=== PATIENT | female | born 1950 | race Caucasian/White ===

== ENCOUNTER → 2022-02-19 | Outpatient (CLI) | payer MEDICARE ==
[2022-02-19 10:06] LABS: African American GFR (CKD) >90 (>60 ml/min/1.73 sqM); Blood Urea Nitrogen 21 mg/dL (7-17); Non-African American GFR(CKD) 90 (>60 ml/min/1.73 sqM)
--- NOTE | 2022-02-19 14:58 | CT ---
EXAMINATION TYPE: CT urogram wo/w con DATE OF EXAM: 02/19/2022 COMPARISON: None INDICATION: Gross hematuria, recurrent UTI's DLP: 2245 mGycm, Automated exposure control for dose reduction was used. CONTRAST: 100 mL of Isovue 370. Study performed without Oral Contrast TECHNIQUE: Axial images were obtained from above the diaphragm to the pubic rami in the axial plane a t 5 mm thick sections. Reconstructed images are reviewed on the computer in the coronal plane. FINDINGS: Limited CT sections are obtained the lung bases. The lung bases are clear. CT ABDOMEN: Liver: There is a hypodensity within the inferior right lobe liver may be a small cyst measuring 1.8 cm in craniocaudal dimension. Spleen: Scattered calcified granulomata within the spleen. Pancreas: Normal Adrenal glands: The adrenal glands are normal. Gallbladder: Cholelithiasis. Kidneys: No masses are evident. No hydronephrosis is present. No cysts are present. Ureters follow a normal caliber course and contour to the urinary bladder. Postcontrast and delayed images were obt ained. 3-D reconstructed images performed on a separate computer by the technologist are reviewed. Aorta: Vascular calcification is within the aorta. Inferior vena cava: Normal. CT PELVIS: Loops of bowel within the abdomen and pelvis are normal. This study is performed without oral con trast in bowel evaluation. Appendix: Not identified. No dilated tubular structure or suspicious inflammatory change evident. Urinary bladder: Normal. Genitourinary structures: Uterus is visualized normal. Adnexa are normal. Osseous structures: No suspicious lytic or sclerotic lesions. IMPRESSIONS: 1. No suspicious urogram abnormalities to account for hematuria. 2. Cholelithiasis. 3. Hepatic cyst
== END | disposition home or self-care (01) ==
LOC: RADCTMAIN 09:30
PROVIDERS: ATTEND Urology
DX: K80.20 Calculus of gallbladder without cholecystitis without obstruction (principal); K76.89 Other specified diseases of liver
CPT/HCPCS: 82565; 84520; 74178; 36415; 74400; Q9967

== ENCOUNTER 2022-12-13 05:08 | Observation (INO) | payer MEDICARE ==
[2022-12-13 05:23] VITALS: TEMP 97.1
[2022-12-13 05:33] LABS: Basophils % (A) 0 %; Eosinophils # (A) 0.1 k/uL (0-0.7); Eosinophils % (A) 1 %; HCT 42.1 % (34.0-46.0); Lymphocytes # (A) 2.9 k/uL (1.0-4.8); Lymphocytes % (A) 45 %; MCH 31.3 pg (25.0-35.0); MCHC 33.2 g/dL (31.0-37.0); MCV 94.1 fL (80.0-100.0); Monocytes # (A) 0.3 k/uL (0-1.0); Monocytes % (A) 5 %; Neutrophils % (A) 47 %; Platelet Count 148 k/uL (150-450); RBC 4.47 m/uL (3.80-5.40); RDW 13.1 % (11.5-15.5); WBC 6.4 k/uL (3.8-10.6)
[2022-12-13 05:51] LABS: ALT 14 U/L (4-34); AST 17 U/L (14-36); African American GFR (CKD) >90 (>60 ml/min/1.73 sqM); Albumin 3.6 g/dL (3.5-5.0); Alkaline Phosphatase 61 U/L (38-126); Anion Gap 8 mmol/L; Blood Urea Nitrogen 17 mg/dL (7-17); Calcium 8.9 mg/dL (8.4-10.2); Carbon Dioxide 24 mmol/L (22-30); Chloride 106 mmol/L (98-107); Glucose 138 mg/dL (74-99); Lipase 44 U/L (23-300); Magnesium 1.8 mg/dL (1.6-2.3); Non-African American GFR(CKD) 88 (>60 ml/min/1.73 sqM); Potassium 3.5 mmol/L (3.5-5.1); Sodium 138 mmol/L (137-145); Total Bilirubin 1.2 mg/dL (0.2-1.3); Total Protein 6.7 g/dL (6.3-8.2)
[2022-12-13 06:00] LABS: INR 0.9 (<1.2); Partial Thromboplastin Time 22.4 sec (22.0-30.0); Prothrombin Time 9.8 sec (9.0-12.0)
--- NOTE | 2022-12-13 06:04 | XR ---
EXAMINATION TYPE: XR chest 2V DATE OF EXAM: 12/13/2022 COMPARISON: None HISTORY: 72-year-old female with chest pain TECHNIQUE: PA and lateral views FINDINGS: Heart upper limits of normal in size. Mild strandy atelectasis in the mid and lower lungs without fra nk consolidation or pleural effusion. Mild central peribronchial cuffing. IMPRESSION: Mild central peribronchial cuffing could reflect bronchitis or asthma. Otherwise, there is some stran dy atelectasis in the lower lungs. No herman infiltrate seen.
--- NOTE | 2022-12-13 06:36 | ED ---
Chest Pain HPI - General Chief Complaint: Chest Pain Stated Complaint: Chest pain Time Seen by Provider: 12/13/22 05:20 Source: patient, EMS Mode of arrival: EMS Limitations: no limitations - History of Present Illness Initial Comments: 72-year-old female with past medical history of "blood cancer" who presents to the emergency department with reported chest pain. States that she awoke to go to the bathroom around 4 PM and had intense onset of chest pressure. Had mild shortness of breath. There was no radiation of the pain. Denies recent fevers, chills or cough.. Patient states that the pain lasted for approximately 30 minutes and she can no longer take and therefore she called EMS. EMS provided her with 2 sublingual nitros for which she states did alleviate her pain completely. She was also given aspirin. Patient arrives and is pain-free. States that she follows with Dr. Jasso. No previous history of cardiac disease. No history of DVT or PE. No other alleviating, precipitating or modifying factors - Related Data Allergies Allergy/AdvReac Type Severity Reaction Status Date / Time No Known Allergies Allergy Verified 12/13/22 05:30 Review of Systems ROS Statement: Those systems with pertinent positive or pertinent negative responses have been documented in the HPI. ROS Other: All systems not noted in ROS Statement are negative. General Exam Limitations: no limitations General appearance: alert, in no apparent distress Head exam: Present: atraumatic, normocephalic, normal inspection Eye exam: Present: normal appearance, PERRL, EOMI. Absent: scleral icterus, conjunctival injection, periorbital swelling ENT exam: Present: normal exam, mucous membranes moist Neck exam: Present: normal inspection. Absent: tenderness, meningismus, lymphadenopathy Respiratory exam: Present: normal lung sounds bilaterally. Absent: respiratory distress, wheezes, rales, rhonchi, stridor Cardiovascular Exam: Present: regular rate, normal rhythm, normal heart sounds. Absent: systolic murmur, diastolic murmur, rubs, gallop, clicks GI/Abdominal exam: Present: soft, normal bowel sounds. Absent: distended, tenderness, guarding, rebound, rigid Extremities exam: Present: normal inspection, full ROM, normal capillary refill. Absent: tenderness, pedal edema, joint swelling, calf tenderness Back exam: Present: normal inspection Neurological exam: Present: alert, oriented X3, CN II-XII intact Psychiatric exam: Present: normal affect, normal mood Skin exam: Present: warm, dry, intact, normal color. Absent: rash Course Vital Signs 12/13/22 12/13/22 12/13/22 05:18 06:23 08:00 Temperature 97.1 F L Pulse Rate 65 58 L 78 Respiratory 16 16 18 Rate Blood Pressure 124/64 128/74 O2 Sat by Pulse 94 L 94 L 98 Oximetry Chest Pain MDM - MDM Was pt. sent in by a medical professional or institution (, PA, PEDIATRIC CRITICAL CARE NURSE, urgent care, hospital, or long term...) When possible be specific @ -No Did you speak to anyone other than the patient for history (EMS, parent, family, police, friend...)? What history was obtained from this source @ -No Did you review nursing and triage notes (agree or disagree)? Why? @ -I reviewed and agree with nursing and triage notes Were old charts reviewed (outside hosp., previous admission, EMS record, old EKG, old radiological studies, urgent care reports/EKG's, long term records)? Report findings @ -No old charts were reviewed Differential Diagnosis (chest pain, altered mental status, abdominal pain women, abdominal pain men, vaginal bleeding, weakness, fever, dyspnea, syncope, headache, dizziness, GI bleed, back pain, seizure, CVA, palpatations, mental health, musculoskeletal)? @ -Differential Chest Pain: Stable Angina, Unstable Angina, STEMI, NSTEMI Aortic Dissection, Pneumothorax, Musculoskeletal, Esophageal Spasm GERD, Cholecystitis, Pancreatitis, Zoster, this is not meant to be an all-inclusive list. EKG interpreted by me (3pts min.). @ -Yes and demonstrates sinus rhythm with a rate of 62. WI 149. QRS 104. QTC of 422. No acute ST segment elevations or depressions X-rays interpreted by me (1pt min.). @ -Yes and demonstrates reactive airway disease CT interpreted by me (1pt min.). @ -None done U/S interpreted by me (1pt. min.). @ -None done What testing was considered but not performed or refused? (CT, X-rays, U/S, labs)? Why? @ -None What meds were considered but not given or refused? Why? @ -None Did you discuss the management of the patient with other professionals (professionals i.e. , PA, PEDIATRIC CRITICAL CARE NURSE, lab, RT, psych nurse, social service assistant, rocket engine component mechanic, teacher, compliance officer, pillowcase cutter)? Give summary @ -Yes, spoke with Beckie from [facility] who agreed to admit the patient. Was smoking cessation discussed for >3mins.? @ -No Was critical care preformed (if so, how long)? @ -No Were there social determinants of health that impacted care today? How? (Homelessness, low income, unemployed, alcoholism, drug addiction, transportation, low edu. Level, literacy, decrease access to med. care, senior living, rehab)? @ -No Was there de-escalation of care discussed even if they declined (Discuss DNR or withdrawal of care, Hospice)? DNR status @ -No What co-morbidities impacted this encounter? (DM, HTN, Smoking, COPD, CAD, Cancer, CVA, ARF, Chemo, Hep., AIDS, mental health diagnosis, sleep apnea, morbid obesity)? @ -None Was patient admitted / discharged? Hospital course, mention meds given and route, prescriptions, significant lab abnormalities, going to OR and other pertinent info. @ -Upon arrival patient was placed into room 4. History and physical exam was performed. Patient placed on continuous pulse ox and cardiac monitoring. 12- lead EKG was obtained patient remained pain-free while within the emergency department. Laboratory studies are conducted and reviewed. Chest x-ray demonstrates reactive process. Results are discussed with the patient. Did recommend admission in order to trend her troponins and had a cardiac evaluation. Patient was agreeable to this. Patient transported to the floor in stable condition Undiagnosed new problem with uncertain prognosis? @ -Yes Drug Therapy requiring intensive monitoring for toxicity (Heparin, Nitro, Insulin, Cardizem)? @ -No Were any procedures done? @ -No Diagnosis/symptom? @ -Acute chest pain Acute, or Chronic, or Acute on Chronic? @ -Acute Uncomplicated (without systemic symptoms) or Complicated (systemic symptoms)? @ -complicated Side effects of treatment? @ -No Exacerbation, Progression, or Severe Exacerbation? @ -No Poses a threat to life or bodily function? How? (Chest pain, [place], [place], pneumonia, PE, COPD, DKA, ARF, appy, cholecystitis, CVA, Diverticulitis, Homicidal, Suicidal, threat to staff... and all critical care pts) @ -No Disposition Clinical Impression: Chest pain Disposition: ADMITTED IP TO THIS HOSP Condition: Stable Is patient prescribed a controlled substance at d/c from ED?: No Time of Disposition: 06:36 Decision to Admit Reason: Admit from EC Decision Date: 12/13/22 Decision Time: 06:36
[2022-12-13] MEDS ORDERED: NALOXONE 0.4 MG/ML 1 ML VIAL IV PRN (06:49)
[2022-12-13] MEDS ORDERED: ONDANSETRON 4 MG/2 ML VIAL IVP PRN (07:47)
[2022-12-13] MEDS ORDERED: ACETAMINOPHEN TAB 325 MG TAB PO PRN (07:47)
[2022-12-13] MEDS ORDERED: PANTOPRAZOLE 40 MG TABLET PO SCH (08:00)
[2022-12-13 08:01] VITALS: BP 128/74; PULSE 78; RESP 18
[2022-12-13] MEDS ORDERED: HEPARIN SODIUM,PORCINE/PF 5,000 UNIT/0.5 ML SYRINGE SQ SCH (09:00)
--- NOTE | 2022-12-13 13:14 | P.CRDCN ---
History of Present Illness Consult date: 12/13/22 Requesting physician: Roderick Will Reason for Consult (text): chest pain History of present illness: This is a pleasant but confused 72-year-old patient who follows with Dr. Haq in the office. She admits to having history of memory issues but denies dementia. She has a poor historian. Most the HPI was obtained from the chart. She admits to remembering having a different sensation in her chest but cannot clearly remember whether she was having pain. Urine no does mention patient had chest pain and was given sublingual nitro by EMS with relief. She does not recall getting sublingual nitro and feels that she got an injection in her arm that apparently relieved the sensation in her chest. She has a history of "rare blood cancer", hypertension, and mild to moderate aortic stenosis by echo in May. She does not recall having previous episodes of chest discomfort. She does not recall whether she's had a stress test in the past. She does not clearly remember having an echocardiogram. She does say she has an upcoming appointment in the office with Dr. Haq. She does not recall having any issues with breathing, dizziness or lightheadedness. She denies any edema, orthopnea or PND. She walks with a walker and lives in an assisted living community. Past Medical History Past Medical History: Cancer, Memory Impairment History of Any Multi-Drug Resistant Organisms: None Reported Past Surgical History: Bladder Surgery Additional Past Surgical History / Comment(s): PT REPORT HAVING COUGH RECENTLY THAT WAS PRODUCTIVE WHITE AND IS NOW BETTER. PT ATTRIBUTES TO SHREDDING PAPERS AND SMOKE OUTSIDE. Past Anesthesia/Blood Transfusion Reactions: No Reported Reaction Additional Past Anesthesia/Blood Transfusion Reaction / Comment(s): NEVER HAD Past Psychological History: Anxiety Smoking Status: Never smoker Medications and Allergies Home Medications Medication Instructions Recorded Confirmed Type Cholecalciferol [Vitamin D3 (25 25 mcg PO DAILY 12/13/22 12/13/22 History Mcg = 1000 Iu)] Cyanocobalamin (Vitamin B-12) 1,000 mcg PO Q48H 12/13/22 12/13/22 History [Vitamin B-12] Folic Acid 1 mg PO DAILY 12/13/22 12/13/22 History Ibrutinib [Imbruvica] 140 mg PO Q48H 12/13/22 12/13/22 History Ibrutinib [Imbruvica] 280 mg PO Q48H 12/13/22 12/13/22 History Metoprolol Tartrate [Lopressor] 12.5 mg PO BID 12/13/22 12/13/22 History Potassium Chloride ER [K-Dur 20] 20 meq PO BID 12/13/22 12/13/22 History hydroCHLOROthiazide [Hydrodiuril] 25 mg PO DAILY 12/13/22 12/13/22 History Allergies Allergy/AdvReac Type Severity Reaction Status Date / Time No Known Allergies Allergy Verified 12/13/22 11:23 Physical Exam Vitals: Vital Signs Temp Pulse Resp BP Pulse Ox 12/13/22 10:08 18 12/13/22 08:00 78 18 128/74 98 12/13/22 06:23 58 L 16 94 L 12/13/22 05:18 97.1 F L 65 16 124/64 94 L Intake and Output 12/12/22 12/13/22 12/13/22 22:59 06:59 14:59 Intake Total 296 Balance 296 Intake: Oral 296 Other: Voiding Method Toilet Weight 72.575 kg 72.575 kg PHYSICAL EXAMINATION: This is a 72-year-old female in no apparent distress at the time of my examination. HEENT: Head is atraumatic, normocephalic. Pupils are equal, round. Sclerae anicteric. Conjunctivae are clear. Mucous membranes of the mouth are moist. Neck is supple. There is no elevated jugular venous pressure. No carotid bruit is heard. CHEST EXAMINATION: Clear to auscultation bilaterally. No wheezes rales or rhonchi. Respirations even and nonlabored. HEART EXAMINATION: Heart regular, positive S1 and S2. No S3. No S4. Systolic ejection murmur. ABDOMEN: Soft, nontender. Bowel sounds are heard. No organomegaly noted. EXTREMITIES: 2+ peripheral pulses with no evidence of peripheral edema and no calf tenderness noted. NEUROLOGIC EXAMINATION: Patient is awake, alert and oriented x3. Short-term memory loss noted Results 12/13/22 05:23 12/13/22 05:23 Cardiac Enzymes 12/13/22 12/13/22 12/13/22 Range/Units 05: 05: 08:33 AST 17 (14-36) U/L Troponin I <0.012 <0.012 (0.000-0.034) ng/mL 12/13/22 Range/Units 11:48 AST (14-36) U/L Troponin I <0.012 (0.000-0.034) ng/mL Coagulation 12/13/22 Range/Units 05:23 PT 9.8 (9.0-12.0) sec APTT 22.4 (22.0-30.0) sec CBC 12/13/22 Range/Units 05:23 WBC 6.4 (3.8-10.6) k/uL RBC 4.47 (3.80-5.40) m/uL Hgb 14.0 (11.4-16.0) gm/dL Hct 42.1 (34.0-46.0) % Plt Count 148 L (150-450) k/uL Comprehensive Metabolic Panel 12/13/22 Range/Units 05:23 Sodium 138 (137-145) mmol/L Potassium 3.5 (3.5-5.1) mmol/L Chloride 106 (98-107) mmol/L Carbon Dioxide 24 (22-30) mmol/L BUN 17 (7-17) mg/dL Creatinine 0.64 (0.52-1.04) mg/dL Glucose 138 H (74-99) mg/dL Calcium 8.9 (8.4-10.2) mg/dL AST 17 (14-36) U/L ALT 14 (4-34) U/L Alkaline Phosphatase 61 (38-126) U/L Total Protein 6.7 (6.3-8.2) g/dL Albumin 3.6 (3.5-5.0) g/dL Current Medications Generic Name Dose Route Start Last Admin Trade Name Freq PRN Reason Stop Dose Admin Acetaminophen 650 mg 12/13/22 07:47 Acetaminophen Tab 325 Mg Tab PO Q6HR PRN Fever and/ or Pain Heparin Sodium (Porcine) 5,000 unit 12/13/22 09:00 12/13/22 10:22 Heparin Sodium,Porcine/Pf 5,000 Unit/0.5 Ml Syringe SQ Not Given Q12HR MARQUITA Naloxone HCl 0.2 mg 12/13/22 06:49 Naloxone 0.4 Mg/Ml 1 Ml Vial IV Q2M PRN Opioid Reversal Ondansetron HCl 4 mg 12/13/22 07:47 Ondansetron 4 Mg/2 Ml Vial IVP Q6HR PRN Nausea And Vomiting Pantoprazole Sodium 40 mg 12/13/22 08:00 12/13/22 08:00 Pantoprazole 40 Mg Tablet PO Not Given AC-BRKFST MARQUITA Intake and Output 12/12/22 12/13/22 12/13/22 22:59 06:59 14:59 Intake Total 296 Balance 296 Intake: Oral 296 Other: Voiding Method Toilet Weight 72.575 kg 72.575 kg Patient Weight 12/14/22 06:59 Weight 72.575 kg 12/13/22 05:23 12/13/22 05:23 EKG Interpretations (text) Sinus rhythm Assessment and Plan Assessment: #1 chest pain, troponins negative 2 and EKG shows no evidence of ischemia, no prior documented history of CAD #2 aortic stenosis, mild to moderate most recent echocardiogram #3 hypertension #4 cognitive impairment Plan: From ground control approach technician perspective R assume home dose of hydrochlorothiazide and metoprolol. Will obtain a 2-D echo with Doppler study to assess cardiac structure and function. Continue to monitor the patient. Depending on her symptoms further recommendations will be made. AUTOMOTIVE PARTS SALESPERSON note has been reviewed, I agree with a documented findings and plan of care. Patient was seen and examined.
[2022-12-13] MEDS ORDERED: POTASSIUM CHLORIDE ER 20 MEQ TAB.ER PO SCH (13:30)
[2022-12-13 14:14] LABS: Iron 41 UG/DL (50-170); Total Iron Binding Capacity 203 UG/DL (228-460)
--- NOTE | 2022-12-13 14:46 | P.HPIM ---
History of Present Illness H&P Date: 12/13/22 History of present illness; patient is 72-year-old lady with past medical signif icant for bone cancer presented to ER because of chest pain. Patient stated that she woke up to go to bathroom when she started experiencing chest pressure. Chest pressure was central in location, nonradiating, associated with shortness of breath. There was no aggravating or relieving factors associated with this chest pressure. Denied any fever or chills. Denied any c/o of palpitations. Denies any complaint of sweating. Denies any orthopnea or PND. EMS was called and patient was given nitro on way to the ER which relieved her chest pain. Initial lab work done in the ER showed W6.4, hemoglobin 14, platelet count 148, sodium 1:30, potassium 3.5, BUN 17, creatinine 0.64, proBNP 22, troponin less than 0.012 EKG done showed regular rate of 62 bpm, QRS 104, no ST segment depression or e levation seen, no T-wave inversion Chest x-ray done showed mild central peribronchial cuffing could reflect bronchitis versus asthma Patient admitted to medicine service REVIEW OF SYSTEMS: CONSTITUTIONAL: No fever, no malaise, no fatigue. HEENT: No recent visual problems or hearing problems. Denied any sore throat. CARDIOVASCULAR: As mentioned in HPI PULMONARY: No shortness of breath, no cough, no hemoptysis. GASTROINTESTINAL: No diarrhea, no nausea, no vomiting, no abdominal pain. NEUROLOGICAL: No headaches, no weakness, no numbness. HEMATOLOGICAL: Denies any bleeding or petechiae. GENITOURINARY: Denies any burning micturition, frequency, or urgency. MUSCULOSKELETAL/RHEUMATOLOGICAL: Denies any joint pain, swelling, or any muscle pain. ENDOCRINE: Denies any polyuria or polydipsia. The rest of the 14-point review of systems is negative. PHYSICAL EXAMINATION: GENERAL: The patient is alert and oriented x3, not in any acute distress. Well developed, well nourished. HEENT: Pupils are round and equally reacting to light. EOMI. No scleral icterus. No conjunctival pallor. Normocephalic, atraumatic. No pharyngeal erythema. No thyromegaly. CARDIOVASCULAR: S1 and S2 present. No murmurs, rubs, or gallops. PULMONARY: Chest is clear to auscultation, no wheezing or crackles. ABDOMEN: Soft, nontender, nondistended, normoactive bowel sounds. No palpable organomegaly. MUSCULOSKELETAL: No joint swelling or deformity. EXTREMITIES: No cyanosis, clubbing, or pedal edema. NEUROLOGICAL: Gross neurological examination did not reveal any focal deficits. SKIN: No rashes. Assessment and plan Chest pain History of bone cancer Monitor vital signs Monitor CBC Monitor CMP Continue telemetry monitoring Trend troponins. Serial EKGs Consult cardiology Ordered lipid panel Ordered HbA1c level ordered TSH Labs and medication were reviewed.. Continue same treatment. Continue with symptomatic treatment. Resume home medication. Monitor labs and vitals. DVT and GI prophylaxis. Further recommendations as per clinical course of the patient Medications and Allergies Allergies Allergy/AdvReac Type Severity Reaction Status Date / Time No Known Allergies Allergy Verified 12/13/22 05:30 Physical Exam Vitals: Vital Signs Temp Pulse Resp BP Pulse Ox 12/13/22 08:00 78 18 128/74 98 12/13/22 06:23 58 L 16 94 L 12/13/22 05:18 97.1 F L 65 16 124/64 94 L Intake and Output 12/12/22 12/13/22 12/13/22 22:59 06:59 14:59 Intake Total 296 Balance 296 Intake: Oral 296 Other: Weight 72.575 kg Results CBC & Chem 7: 12/13/22 05:23 12/13/22 05:23 Labs: Abnormal Lab Results - Last 24 Hours (Table) 12/13/22 12/13/22 Range/Units 05:23 05:23 Plt Count 148 L (150-450) k/uL Glucose 138 H (74-99) mg/dL
--- NOTE | 2022-12-13 14:47 | P.DS ---
Providers Date of admission: 12/13/22 06:49 Expected date of discharge: 12/13/22 Attending physician: Roderick Will Consults: 12/13/22 06:49 Consult Physician Urgent Consulting Provider: [facility] Consult Reason/Comments: acute chest pain, possible acs Do you want consulting provider notified?: Yes Primary care physician: Subhash Strong Hospital Course: Discharge diagnoses; chest pain aortic stenosis hypertension Hospital course; patient is 72-year-old lady with past medical significant for bone cancer presented to ER because of chest pain. Patient stated that she woke up to go to bathroom when she started experiencing chest pressure. Chest pressure was central in location, nonradiating, associated with shortness of breath. There was no aggravating or relieving factors associated with this chest pressure. Denied any fever or chills. Denied any c/o of palpitations. Denies any complaint of sweating. Denies any orthopnea or PND. EMS was called and patient was given nitro on way to the ER which relieved her chest pain. Initial lab work done in the ER showed W6.4, hemoglobin 14, platelet count 148, sodium 1:30, potassium 3.5, BUN 17, creatinine 0.64, proBNP 22, troponin less than 0.012 EKG done showed regular rate of 62 bpm, QRS 104, no ST segment depression or elevation seen, no T-wave inversion Chest x-ray done showed mild central peribronchial cuffing could reflect bronchitis versus asthma Patient admitted to medicine service 12/13. Patient was seen and examined. Patient troponin continue to be flat. Cardiology evaluated the patient recommended resuming patient back on her cardiac medications and outpatient follow-up. Cardiology cleared the patient for discharge PHYSICAL EXAMINATION: GENERAL: The patient is alert and oriented x3, not in any acute distress. Well developed, well nourished. HEENT: Pupils are round and equally reacting to light. EOMI. No scleral icterus. No conjunctival pallor. Normocephalic, atraumatic. No pharyngeal erythema. No thyromegaly. CARDIOVASCULAR: S1 and S2 present. No murmurs, rubs, or gallops. PULMONARY: Chest is clear to auscultation, no wheezing or crackles. ABDOMEN: Soft, nontender, nondistended, normoactive bowel sounds. No palpable organomegaly. MUSCULOSKELETAL: No joint swelling or deformity. EXTREMITIES: No cyanosis, clubbing, or pedal edema. NEUROLOGICAL: Gross neurological examination did not reveal any focal deficits. SKIN: No rashes. Patient Condition at Discharge: Stable Plan - Discharge Summary New Discharge Prescriptions: Continue Folic Acid 1 mg PO DAILY hydroCHLOROthiazide [Hydrodiuril] 25 mg PO DAILY Potassium Chloride ER [K-Dur 20] 20 meq PO BID Ibrutinib [Imbruvica] 140 mg PO Q48H Cyanocobalamin (Vitamin B-12) [Vitamin B-12] 1,000 mcg PO Q48H Cholecalciferol [Vitamin D3 (25 Mcg = 1000 Iu)] 25 mcg PO DAILY Metoprolol Tartrate [Lopressor] 12.5 mg PO BID Discontinued Ibrutinib [Imbruvica] 280 mg PO Q48H Discharge Medication List Cholecalciferol [Vitamin D3 (25 Mcg = 1000 Iu)] 25 mcg PO DAILY 12/13/22 [Hist ory] Cyanocobalamin (Vitamin B-12) [Vitamin B-12] 1,000 mcg PO Q48H 12/13/22 [History] Folic Acid 1 mg PO DAILY 12/13/22 [History] Ibrutinib [Imbruvica] 140 mg PO Q48H 12/13/22 [History] Metoprolol Tartrate [Lopressor] 12.5 mg PO BID 12/13/22 [History] Potassium Chloride ER [K-Dur 20] 20 meq PO BID 12/13/22 [History] hydroCHLOROthiazide [Hydrodiuril] 25 mg PO DAILY 12/13/22 [History] Follow up Appointment(s)/Referral(s): Subhash Strong MD [Primary Care Provider] - 1-2 days Bhupinder Garcia MD [STAFF PHYSICIAN] - 1 Week Discharge Disposition: HOME SELF-CARE
--- NOTE | 2022-12-13 15:23 | CA ---
Transthoracic Echo Report Name: Elizabeth Smith Age: 72 Gender: F : 1950 Exam Date: 12/13/2022 11:31 Exam Location: [facility] Ht (in): 66 Wt (lb): 160 Ordering Physician: Kristie Jenkins Attending/Referring Phys: [id number], Alice Clinical Resource Coordinator Winifred Mccarty [facility] Procedure CPT: Indications: Chest Pain Cardiac Hx: Technical Quality: Fair Contrast 1: Total Dose (mL): Contrast 2: Total Dose (mL): MEASUREMENTS (Male / Female) Normal Values 2D ECHO LV Diastolic Diameter PLAX 3.4 cm 4.2 - 5.9 / 3.9 - 5.3 cm LV Systolic Diameter PLAX 2.5 cm IVS Diastolic Thickness 0.7 cm 0.6 - 1.0 / 0.6 - 0.9 cm LVPW Diastolic Thickness 0.7 cm 0.6 - 1.0 / 0.6 - 0.9 cm LV Relative Wall Thickness 0.4 LVOT Diameter 2.0 cm Ascending Aorta Diameter 3.1 cm M-MODE Aortic Root Diameter MM 2.6 cm LA Systolic Diameter MM 2.9 cm LA Ao Ratio MM 1.1 AV Cusp Separation MM 1.5 cm DOPPLER AV Peak Velocity 197.8 cm/s AV Peak Gradient 15.6 mmHg AV Mean Velocity 151.5 cm/s AV Mean Gradient 9.8 mmHg AV Velocity Time Integral 44.6 cm LVOT Peak Velocity 135.7 cm/s LVOT Peak Gradient 7.4 mmHg LVOT Velocity Time Integral 29.4 cm LVOT Stroke Volume 93.1 cm??? LVOT Stroke Volume Index 51.2 ml/m??? LVOT Cardiac Index 3117.8 cm???/min???m??? AV Area Cont Eq vti 2.1 cm??? AV Area Cont Eq pk 2.2 cm??? Mitral E Point Velocity 60.3 cm/s Mitral A Point Velocity 76.4 cm/s Mitral E to A Ratio 0.8 MV Deceleration Time 228.6 ms LV E' Lateral Velocity 8.4 cm/s Mitral E to LV E' Lateral Ratio 7.2 LV E' Septal Velocity 6.8 cm/s Mitral E to LV E' Septal Ratio 8.8 TR Peak Velocity 268.7 cm/s TR Peak Gradient 28.9 mmHg Right Atrial Pressure 3.0 mmHg Pulmonary Artery Systolic Pressu 31.9 mmHg Right Ventricular Systolic Press 31.9 mmHg FINDINGS Left Ventricle Small left ventricular cavity. Left ventricular wall thickness normal. No obvious regional wall motion abnormalities. Left ventricular ejection fraction is estimated at 60-65%. Right Ventricle right ventricular dilatation. Normal right ventricular global systolic function. Right Atrium Right atrium not well visualized but appears dilated. Left Atrium Normal left atrial size. Mitral Valve Structurally normal mitral valve. No mitral regurgitation. Aortic Valve Trileaflet aortic valve. Focal thickening of the aortic valve cusps. Aortic valve sclerosis. No aortic regurgitation. Tricuspid Valve Structurally normal tricuspid valve. Mild tricuspid regurgitation. Pulmonic Valve Structurally normal pulmonic valve. Trace pulmonic regurgitation. Pericardium No pericardial effusion. Aorta Normal size aortic root and proximal ascending aorta. CONCLUSIONS 1. Normal left ventricular systolic function 2. Dilated right ventricle with normal pulmonary pressure 3. Mild tricuspid regurgitation 4. Aortic sclerosis Previewed by: Silver Marquez MD Dr. Bashar Samman MD (Electronically Signed) Final Date: 13 December 2022 15:22
[2022-12-13] MEDS ORDERED: METOPROLOL TARTRATE 12.5 MG TAB PO SCH (21:00)
[2022-12-14] MEDS ORDERED: hydroCHLOROthiazide 25 MG TAB PO SCH (09:00)
== END 2022-12-13 15:26 | disposition home or self-care (01) ==
LOC: EC 05:08 → 6NMEDSUR 06:49
PROVIDERS: ADMIT Hospitalist; ATTEND Hospitalist
DX: R07.89 Other chest pain (principal); I08.2 Rheumatic disorders of both aortic and tricuspid valves; I10 Essential (primary) hypertension; R41.3 Other amnesia; R91.8 Other nonspecific abnormal finding of lung field; F41.9 Anxiety disorder, unspecified; Z98.890 Other specified postprocedural states; Z79.899 Other long term (current) drug therapy; Z85.89 Personal history of malignant neoplasm of other organs and systems
CPT/HCPCS: 99285; 36415; 93005; 93306; 85379; 83880; 80053; 84443; 83540; 83550; 83690; 83735; 84484; 85025; 85610; 85730; 83036; 71046; G0378

== ENCOUNTER → 2023-07-13 | Outpatient (CLI) | payer MEDICARE ==
[2023-07-13 16:15] LABS: Homocysteine 8.81 UMOL/L (4.00-14.00); Thyroid Peroxidase Antibodies <9.0 U/mL (0.0-33.0)
[2023-07-13 16:25] LABS: ALT 13 U/L (8-44); AST 16 U/L (13-35); Albumin/Globulin Ratio 1.33 Ratio (1.60-3.17); Alkaline Phosphatase 67 U/L (41-126); BUN/Creat Ratio 24.75 Ratio (12.00-20.00); Blood Urea Nitrogen 19.8 mg/dL (9.0-27.0); Calcium 9.9 mg/dL (8.7-10.3); Carbon Dioxide 23.9 mmol/L (21.6-31.8); Chloride 104 mmol/L (96-109); Chol/HDL Ratio 3.33 Ratio; Glucose 125 mg/dL (70-110); Iron 61 UG/DL (50-170); LDL Cholesterol,Calculated 119.5 mg/dL (0.0-131.0); Magnesium 1.9 mg/dL (1.5-2.4); Phosphorus 3.2 mg/dL (2.4-5.1); Potassium 3.8 mmol/L (3.5-5.5); Sodium 141 mmol/L (135-145); T4, Free (Free Thyroxine) 2.02 ng/dL (0.80-1.80); Total Iron Binding Capacity 245 UG/DL (228-460); VLDL Calculation 12.84 mg/dL (5.00-40.00)
[2023-07-13 19:23] LABS: EBV-EA (IgG) 0.4 AI; EBV-EBNA(IgG) 5.6; EBV-VCA (IgG) >8.0 AI
[2023-07-14 12:40] LABS: Zinc, Serum 82 ug/dL (60-130)
[2023-07-14 12:59] LABS: Lipoprotein A 10 mg/dL (0-30)
[2023-07-14 13:12] LABS: EBV-VCA (IgM) sent to ARUP AI
[2023-07-15 06:16] LABS: Vitamin A 61 ug/dL (38-106); Vitamin E (Alpha Tocopherol) 1278 ug/dL (500-1800)
[2023-07-15 09:33] LABS: Vit B1(Thiamine) 118 ug/L (38-122)
== END | disposition home or self-care (01) ==
LOC: LABWHC1 09:22
PROVIDERS: ATTEND Nurse Practitioner Adult Health
DX: Z00.01 Encounter for general adult medical examination with abnormal findings (principal); F41.9 Anxiety disorder, unspecified; G89.4 Chronic pain syndrome; K86.81 Exocrine pancreatic insufficiency; E06.3 Autoimmune thyroiditis; D63.8 Anemia in other chronic diseases classified elsewhere; M04.9 Autoinflammatory syndrome, unspecified; R63.5 Abnormal weight gain; R74.8 Abnormal levels of other serum enzymes; Z83.42 Family history of familial hypercholesterolemia
CPT/HCPCS: 36415; 80053; 80061; 82180; 82306; 82607; 82728; 82746; 83036; 83090; 83525; 83540; 83550; 83695; 83735; 84100; 84207; 84425; 84439; 84443; 84446; 84481; 84482; 84590; 84630; 85025; 86141; 86376; 86663; 86664; 86665; 86800

== ENCOUNTER 2023-11-25 08:14 | Emergency (ER) | payer MEDICARE ==
[2023-11-25 08:23] VITALS: RESP 18
--- NOTE | 2023-11-25 08:52 | ED ---
General Adult HPI - General Chief complaint: Shortness of Breath Stated complaint: sob Time Seen by Provider: 11/25/23 08:18 Source: patient, family Mode of arrival: ambulatory Limitations: no limitations - History of Present Illness Initial comments: Dictation was produced using [employer] dictation software. please excuse any grammatical, word or spelling errors. Chief Complaint: 73-year-old female with foreign body sensation in the throat History of Present Illness: Patient 73-year-old female with past medical history of Waldenstrm's macroglobulinemia. Patient states that for the last 3 to 4 days she has been having congestion symptoms in the nose including runny nose. Patient states that today she has had sensation of foreign body in the throat. States that she feels like there is a lump in her throat. She noticed that her voice seems different. She does report having collection of mucus production in her throat that she coughs up. Denies any fever, chills or night sweats. The ROS documented in this emergency department record has been reviewed and confirmed by me. Those systems with pertinent positive or negative responses h ave been documented in the HPI. All other systems are other negative and/or noncontributory. - Related Data Home Medications Medication Instructions Recorded Confirmed Ibrutinib [Imbruvica] 140 mg PO Q2D 12/13/22 11/25/23 Metoprolol Tartrate [Lopressor] 12.5 mg PO BID 12/13/22 11/25/23 Adrenevive 1 dose PO DAILY 11/25/23 11/25/23 Ibrutinib [Imbruvica] 280 mg PO Q2D 11/25/23 11/25/23 Methylated B 1 dose PO DAILY 11/25/23 11/25/23 Mitocore 1 dose PO DAILY 11/25/23 11/25/23 Allergies Allergy/AdvReac Type Severity Reaction Status Date / Time No Known Allergies Allergy Verified 11/25/23 09:05 Review of Systems ROS Statement: Those systems with pertinent positive or pertinent negative responses have been documented in the HPI. ROS Other: All systems not noted in ROS Statement are negative. Past Medical History Past Medical History: Cancer, Memory Impairment History of Any Multi-Drug Resistant Organisms: None Reported Past Surgical History: Bladder Surgery Additional Past Surgical History / Comment(s): PT REPORT HAVING COUGH RECENTLY THAT WAS PRODUCTIVE WHITE AND IS NOW BETTER. PT ATTRIBUTES TO SHREDDING PAPERS AND SMOKE OUTSIDE. Past Anesthesia/Blood Transfusion Reactions: No Reported Reaction Additional Past Anesthesia/Blood Transfusion Reaction / Comment(s): NEVER HAD Past Psychological History: Anxiety Smoking Status: Never smoker General Exam - General Exam Comments Initial Comments: PHYSICAL EXAM: General Impression: Alert and oriented x3, not in acute distress, slight abnormal phonation no stridor HEENT: Normocephalic atraumatic, extra-ocular movements intact, pupils equal and reactive to light bilaterally, mucous membranes moist. Cardiovascular: Heart regular rate and rhythm Chest: Able to complete full sentences, no retractions, no tachypnea, mild rhonchi to auscultation the lungs worse in the right upper lung trejo anteriorly Abdomen: abdomen soft, non-tender, non-distended, no organomegaly Musculoskeletal: Pulses present and equal in all extremities, no peripheral edema Motor: no focal deficits noted Neurological: CN II-XII grossly intact, no focal motor or sensory deficits noted Skin: Intact with no visualized rashes Psych: Normal affect and mood Limitations: no limitations Course Vital Signs 11/25/23 08:20 Temperature 97.5 F L Pulse Rate 111 H Respiratory 18 Rate Blood Pressure 149/86 O2 Sat by Pulse 96 Oximetry Medical Decision Making - Medical Decision Making Was pt. sent in by a medical professional or institution (, PA, CAVITY PUMP OPERATOR, urgent care, hospital, or [place] health [place] facility...) When possible be specific @ -No Did you speak to anyone other than the patient for history (EMS, parent, family, police, friend...)? What history was obtained from this source @ -Friend at the bedside explains patient's family history as described above Did you review nursing and triage notes (agree or disagree)? Why? @ -I reviewed and agree with nursing and triage notes Were old charts reviewed (outside hosp., previous admission, EMS record, old EKG, old radiological studies, urgent care reports/EKG's, [place] health [place] facility records)? Report findings @ -Old charts reviewed showing the patient last she was seen here in our hospital for chest pain. There was no workup performed for upper airway issues Differential Diagnosis (chest pain, altered mental status, abdominal pain women, abdominal pain men, vaginal bleeding, musculoskeletal, weakness, fever, dyspnea, syncope, headache, dizziness, GI bleed, back pain, seizure, CVA, palpatations, mental health)? @ -Laryngeal mass, bronchial mass, Zenker's diverticulitis EKG interpreted by me (3pts min.). @ -None done X-rays interpreted by me (1pt min.). @ -None done CT interpreted by me (1pt min.). @ -CT soft tissue neck with contrast shows multiple nonspecific thyroid nodules measuring up to 9 mm U/S interpreted by me (1pt. min.). @ -None done What testing was considered but not performed or refused? (CT, X-rays, U/S, labs)? Why? @ -None What meds were considered but not given or refused? Why? @ -None Was smoking cessation discussed for >3mins.? @ -No Were there social determinants of health that impacted care today? How? (Homelessness, low income, unemployed, alcoholism, drug addiction, transport ation, low edu. Level, literacy, decrease access to med. care, halfway, rehab)? @ -No Was there de-escalation of care discussed even if they declined (Discuss DNR or withdrawal of care, Hospice)? DNR status @ -No What co-morbidities impacted this encounter? (DM, HTN, Smoking, COPD, CAD, Cancer, CVA, ARF, Chemo, Hep., AIDS, mental health diagnosis, sleep apnea, morbid obesity)? @ -Waldenstrm's macroglobulinemia Was patient admitted / discharged? Hospital course, mention meds given and route, prescriptions, significant lab abnormalities, going to OR and other pertinent info. @ -73-year-old female presents to the emergency department with foreign body throat sensation. Vital signs upon arrival are within acceptable limits. Patient well-appearing no acute distress. Laboratory evaluation obtained. CBC, metabolic panel unremarkable. Viral testing is negative. CT soft tissue neck shows multiple thyroid nodules. Patient made aware of this and that she should follow-up with her primary care doctor regarding the imaging findings. Patient does not meet any criteria for thyroid storm or thyrotoxicosis. Pending thyroid labs. Did you discuss the management of the patient with other professionals (professionals i.e. , PA, CAVITY PUMP OPERATOR, lab, RT, psych nurse, social media executive, state appellate clerk, teacher, commissioned security officer, rn case manager)? Give summary @ -No Was critical care preformed (if so, how long)? @ -No Undiagnosed new problem with uncertain prognosis? @ -No Drug Therapy requiring intensive monitoring for toxicity (Heparin, Nitro, Insulin, Cardizem)? @ -No Were any procedures done? @ -No Diagnosis/symptom? Acute, or Chronic, or Acute on Chronic? Uncomplicated (without systemic symptoms) or Complicated (systemic symptoms)? @ -Thyroid nodules Side effects of treatment? @ -No Exacerbation, Progression, or Severe Exacerbation? @ -No Poses a threat to life or bodily function? How? (Chest pain, [place], [place], pneumonia, PE, COPD, DKA, ARF, appy, cholecystitis, CVA, Diverticulitis, Homicidal, Suicidal, threat to staff... and all critical care pts) @ -yes - Lab Data Result diagrams: 11/25/23 08:50 11/25/23 08:50 Lab Results 11/25/23 11/25/23 11/25/23 Range/Units 08:50 08:50 08:50 WBC 7.5 (3.8-10.6) k/uL RBC 4.58 (3.80-5.40) m/uL Hgb 14.0 (11.4-16.0) gm/dL Hct 43.5 (34.0-46.0) % MCV 94.9 (80.0-100.0) fL MCH 30.6 (25.0-35.0) pg MCHC 32.2 (31.0-37.0) g/dL RDW 13.6 (11.5-15.5) % Plt Count 135 L (150-450) k/uL MPV 8.9 Neutrophils % 70 % Lymphocytes % 21 % Monocytes % 6 % Eosinophils % 1 % Basophils % 0 % Neutrophils # 5.2 (1.3-7.7) k/uL Lymphocytes # 1.6 (1.0-4.8) k/uL Monocytes # 0.5 (0-1.0) k/uL Eosinophils # 0.1 (0-0.7) k/uL Basophils # 0.0 (0-0.2) k/uL Sodium 139 (137-145) mmol/L Potassium 3.6 (3.5-5.1) mmol/L Chloride 108 H (98-107) mmol/L Carbon Dioxide 25 (22-30) mmol/L Anion Gap 6 mmol/L BUN 12 (7-17) mg/dL Creatinine 0.59 (0.52-1.04) mg/dL Est GFR (CKD-EPI)AfAm >90 (>60 ml/min/1.73 sqM) Est GFR (CKD-EPI)NonAf >90 (>60 ml/min/1.73 sqM) Glucose 127 H (74-99) mg/dL Calcium 9.1 (8.4-10.2) mg/dL Influenza Type A (PCR) Not Detected (Not Detectd) Influenza Type B (PCR) Not Detected (Not Detectd) RSV (PCR) Not Detected (Not Detectd) SARS-CoV-2 (PCR) Not Detected (Not Detectd) Disposition Clinical Impression: Thyroid nodule Disposition: HOME SELF-CARE Condition: Fair Instructions (If sedation given, give patient instructions): Thyroid Nodules (ED) Is patient prescribed a controlled substance at d/c from ED?: No Referrals: Subhash Strong MD [Primary Care Provider] - 1-2 days Time of Disposition: 10:19
[2023-11-25 09:06] LABS: Basophils % (A) 0 %; Eosinophils # (A) 0.1 k/uL (0-0.7); Eosinophils % (A) 1 %; HCT 43.5 % (34.0-46.0); Lymphocytes # (A) 1.6 k/uL (1.0-4.8); Lymphocytes % (A) 21 %; MCH 30.6 pg (25.0-35.0); MCHC 32.2 g/dL (31.0-37.0); MCV 94.9 fL (80.0-100.0); Mean Platelet Volume 8.9; Monocytes # (A) 0.5 k/uL (0-1.0); Monocytes % (A) 6 %; Neutrophils # (A) 5.2 k/uL (1.3-7.7); Neutrophils % (A) 70 %; Platelet Count 135 k/uL (150-450); RBC 4.58 m/uL (3.80-5.40); RDW 13.6 % (11.5-15.5); WBC 7.5 k/uL (3.8-10.6)
[2023-11-25 09:20] LABS: African American GFR (CKD) >90 (>60 ml/min/1.73 sqM); Anion Gap 6 mmol/L; Blood Urea Nitrogen 12 mg/dL (7-17); Calcium 9.1 mg/dL (8.4-10.2); Carbon Dioxide 25 mmol/L (22-30); Chloride 108 mmol/L (98-107); Glucose 127 mg/dL (74-99); Non-African American GFR(CKD) >90 (>60 ml/min/1.73 sqM); Potassium 3.6 mmol/L (3.5-5.1); Sodium 139 mmol/L (137-145)
--- NOTE | 2023-11-25 10:04 | CT ---
EXAMINATION TYPE: CT soft tissue neck w con DATE OF EXAM: 11/25/2023 COMPARISON: None HISTORY: foreign body sensation in throat CT DLP: 256.7 mGycm CONTRAST: CT scan of the neck is performed with IV Contrast, patient injected with 100ml mL of Isovue 300. Contrast enhanced CT of the neck was performed from the skull base through the lung apices. AIRWAY: The supraglottic, glottic, and subglottic portions of the airway appear patent and free of mass. SALIVARY GLANDS: The submandibular and parotid glands are free of mass or inflammatory process. THYROID GLAND: Multiple nonspecific thyroid nodules measuring up to 9 mm. Correlate with thyroid ultr asound. LYMPH NODES: No adenopathy seen greater than 1cm. LUNG APICES: Calcified granuloma left upper lobe. OTHER: Vascular structures are patent. No significant degenerative change of the cervical spine. N o abscess seen. IMPRESSION: Multiple nonspecific thyroid nodules measuring up to 9 mm. Correlate with thyroid ultrasound.
[2023-11-25 10:44] VITALS: BP 142/71; PULSE 88; TEMP 98.7
== END 2023-11-25 10:44 | disposition home or self-care (01) ==
LOC: EC 08:14
DX: E04.1 Nontoxic single thyroid nodule (principal); C88.0 Waldenstrom macroglobulinemia
CPT/HCPCS: 36415; 80048; 84443; 85025; 87636; 70491; 99285; Q9967

== ENCOUNTER 2024-03-09 13:08 | Emergency (ER) | payer MEDICARE, OTHER ==
[2024-03-09 13:20] VITALS: RESP 18
--- NOTE | 2024-03-09 13:43 | ED ---
General Adult HPI - General Chief complaint: GI Bleed Stated complaint: lower R abd pain/blood in stool Time Seen by Provider: 03/09/24 13:20 Source: patient, RN notes reviewed, old records reviewed Mode of arrival: ambulatory Limitations: no limitations - History of Present Illness Initial comments: This is a 73-year-old female who presents to the emergency department complaining of right-sided abdominal pain for a week. Patient also states her stools been black today and she was concerned. Patient denies any shortness of breath or difficulty breathing. Patient states the pain is constant but at times he gets worse. Patient denies any diarrhea. Patient has any fever or chills. Patient denies chest pain. Patient denies any previous abdominal surgeries. - Related Data Home Medications Medication Instructions Recorded Confirmed Ibrutinib [Imbruvica] 140 mg PO Q2D 12/13/22 11/25/23 Metoprolol Tartrate [Lopressor] 12.5 mg PO BID 12/13/22 11/25/23 Adrenevive 1 dose PO DAILY 11/25/23 11/25/23 Ibrutinib [Imbruvica] 280 mg PO Q2D 11/25/23 11/25/23 Methylated B 1 dose PO DAILY 11/25/23 11/25/23 Mitocore 1 dose PO DAILY 11/25/23 11/25/23 Allergies Allergy/AdvReac Type Severity Reaction Status Date / Time No Known Allergies Allergy Verified 03/09/24 13:16 Review of Systems ROS Statement: Those systems with pertinent positive or pertinent negative responses have been documented in the HPI. ROS Other: All systems not noted in ROS Statement are negative. Past Medical History Past Medical History: Cancer, Memory Impairment History of Any Multi-Drug Resistant Organisms: None Reported Past Surgical History: Bladder Surgery Additional Past Surgical History / Comment(s): PT REPORT HAVING COUGH RECENTLY THAT WAS PRODUCTIVE WHITE AND IS NOW BETTER. PT ATTRIBUTES TO SHREDDING PAPERS AND SMOKE OUTSIDE. Past Anesthesia/Blood Transfusion Reactions: No Reported Reaction Additional Past Anesthesia/Blood Transfusion Reaction / Comment(s): NEVER HAD Past Psychological History: Anxiety Smoking Status: Never smoker Past Alcohol Use History: None Reported Past Drug Use History: None Reported General Exam - General Exam Comments Initial Comments: GENERAL: Patient is well-developed and well-nourished. Patient is nontoxic and well- hydrated and is in no acute distress. ENT: Neck is soft and supple. No significant lymphadenopathy is noted. Oropharynx is clear. Moist mucous membranes. Neck has full range of motion without eliciting any pain. EYES: The sclera were anicteric and conjunctiva were pink and moist. Extraocular movements were intact and pupils were equal round and reactive to light. Eyelids were unremarkable. PULMONARY: Unlabored respirations. Good breath sounds bilaterally. No audible rales rhonchi or wheezing was noted. CARDIOVASCULAR: There is a regular rate and rhythm without any murmurs gallops or rubs. ABDOMEN: Right lower quadrant abdominal pain on palpation. No rebound or guarding SKIN: Skin is clear with no lesions or rashes and otherwise unremarkable. NEUROLOGIC: Patient is alert and oriented x3. Cranial nerves II through XII are grossly intact. Motor and sensory are also intact. Normal speech, volume and content. Symmetrical smile. MUSCULOSKELETAL: Normal extremities with adequate strength and full range of motion. LYMPHATICS: No significant lymphadenopathy is noted PSYCHIATRIC: Normal psychiatric evaluation. Limitations: no limitations Course Vital Signs 03/09/24 13:20 Temperature 98.5 F Pulse Rate 91 Respiratory 18 Rate Blood Pressure 117/69 O2 Sat by Pulse 99 Oximetry Medical Decision Making - Medical Decision Making Was pt. sent in by a medical professional or institution (, PA, FRONT DESK TEAM MEMBER, urgent care, hospital, or intermediate...) When possible be specific @ -No Did you speak to anyone other than the patient for history (EMS, parent, family, police, friend...)? What history was obtained from this source @ -No Did you review nursing and triage notes (agree or disagree)? Why? @ -I reviewed and agree with nursing and triage notes Were old charts reviewed (outside hosp., previous admission, EMS record, old EKG, old radiological studies, urgent care reports/EKG's, intermediate records)? Report findings @ -No old charts were reviewed Differential Diagnosis? @ -Differential Abdominal Pain Women: Appendicitis, Cholecystitis, diverticulosis, ischemic bowel, pancreatitis, hepatitis, UTI, gastroenteritis, AAA, incarcerated hernia, bowel obstruction, constipation, inflammatory bowel, hepatitis, peptic ulcer disease, splenic inf arction, perforated viscus, vulvitis, ovarian torsion, PID, kidney stone, placenta abruption, this is not meant to be an all-inclusive list EKG interpreted by me (3pts min.). @ -As above X-rays interpreted by me (1pt min.). @ -None done CT interpreted by me (1pt min.). @ -CT of the abdomen pelvis shows no acute abnormality U/S interpreted by me (1pt. min.). @ -None done What testing was considered but not performed or refused? (CT, X-rays, U/S, labs)? Why? @ -None What meds were considered but not given or refused? Why? @ -None Did you discuss the management of the patient with other professionals (professionals i.e. , PA, FRONT DESK TEAM MEMBER, lab, RT, psych nurse, criminal justice social worker, patent lawyer, teacher, svp chief marketing officer, caseworker protective services)? Give summary @ -No Was smoking cessation discussed for >3mins.? @ -No Was critical care preformed (if so, how long)? @ -No Were there social determinants of health that impacted care today? How? (Homelessness, low income, unemployed, alcoholism, drug addiction, transportatio n, low edu. Level, literacy, decrease access to med. care, assisted, rehab)? @ -No Was there de-escalation of care discussed even if they declined (Discuss DNR or withdrawal of care, Hospice)? DNR status @ -No What co-morbidities impacted this encounter? (DM, HTN, Smoking, COPD, CAD, Cancer, CVA, ARF, Chemo, Hep., AIDS, mental health diagnosis, sleep apnea, morbid obesity)? @ -None Was patient admitted / discharged? Hospital course, mention meds given and route, prescriptions, significant lab abnormalities, going to OR and other pertinent info. @ -Patient had a occult stool which was negative for blood. Patient's CAT scan of the abdomen pelvis was negative. Patient CBC showed no acute normality. Undiagnosed new problem with uncertain prognosis? @ -No Drug Therapy requiring intensive monitoring for toxicity (Heparin, Nitro, Insulin, Cardizem)? @ -No Were any procedures done? @ -No Diagnosis/symptom? @ -Default Acute, or Chronic, or Acute on Chronic? @ -Abdominal pain acute Uncomplicated (without systemic symptoms) or Complicated (systemic symptoms)? @ -Complicated Side effects of treatment? @ -No Exacerbation, Progression, or Severe Exacerbation? @ -No Poses a threat to life or bodily function? How? (Chest pain, [place], [place], pneumonia, PE, COPD, DKA, ARF, appy, cholecystitis, CVA, Diverticulitis, Homicidal, Suicidal, threat to staff... and all critical care pts) @ -No - Lab Data Result diagrams: 03/09/24 14:53 Lab Results 03/09/24 03/09/24 Range/Units 13:58 14:53 WBC 5.1 (3.8-10.6) k/uL RBC 4.25 (3.80-5.40) m/uL Hgb 13.3 (11.4-16.0) gm/dL Hct 38.8 (34.0-46.0) % MCV 91.3 (80.0-100.0) fL MCH 31.2 (25.0-35.0) pg MCHC 34.2 (31.0-37.0) g/dL RDW 13.7 (11.5-15.5) % Plt Count 142 L (150-450) k/uL MPV 8.8 Neutrophils % 80 % Lymphocytes % 14 % Monocytes % 5 % Eosinophils % 1 % Basophils % 0 % Neutrophils # 4.1 (1.3-7.7) k/uL Lymphocytes # 0.7 L (1.0-4.8) k/uL Monocytes # 0.3 (0-1.0) k/uL Eosinophils # 0.0 (0-0.7) k/uL Basophils # 0.0 (0-0.2) k/uL Stool Occult Blood Negative (Negative) Disposition Clinical Impression: Abdominal pain Disposition: HOME SELF-CARE Instructions (If sedation given, give patient instructions): Abdominal Pain (ED) Is patient prescribed a controlled substance at d/c from ED?: No Referrals: Subhash Strong MD [Primary Care Provider] - 1-2 days Time of Disposition: 15:05
--- NOTE | 2024-03-09 14:39 | CT ---
EXAMINATION TYPE: CT abdomen pelvis wo con DATE OF EXAM: 03/09/2024 COMPARISON: 02/19/2022 HISTORY: Dark stool with 2/[address] DLP: 588.9 mGycm Examination of the solid and hollow viscera is limited given the lack of contrast. FINDINGS: LUNG BASES: No evidence for nodule. No evidence for infiltrate. LIVER/GB: Calcified gallstones without gallbladder wall thickening. 1.6 cm cyst anterior segment righ t hepatic lobe. PANCREAS: No pancreatic mass identified. No inflammatory process seen. SPLEEN: No evidence for splenomegaly. No intrasplenic lesions seen. Splenic granulomas noted. ADRENALS: No adrenal nodules identified. No evidence for thickening. KIDNEYS: No evidence for renal mass. No nephrolithiasis. No hydronephrosis. BOWEL: Appendix has a normal appearance. No evidence of bowel obstruction. No inflammatory process. Lymph nodes: No evidence for adenopathy greater than 1 cm. Abdominal aorta: Atheromatous changes seen. No evidence for aneurysm. Genital organs: No significant abnormality. Other: No significant abnormality. IMPRESSION: 1. No acute process identified. 2. Cholelithiasis without features of acute cholecystitis. 3. Simple cyst involving the liver. 4. Splenic granulomas. [facility], , 03/09/2024 2:36 PM
[2024-03-09] MEDS: SODIUM CHLORIDE 0.9% 500 ML 500 ML IV STA (14:54)
[2024-03-09 14:55] LABS: Basophils % (A) 0 %; Eosinophils % (A) 1 %; HCT 38.8 % (34.0-46.0); HGB 13.3 gm/dL (11.4-16.0); Lymphocytes # (A) 0.7 k/uL (1.0-4.8); Lymphocytes % (A) 14 %; MCH 31.2 pg (25.0-35.0); MCHC 34.2 g/dL (31.0-37.0); MCV 91.3 fL (80.0-100.0); Mean Platelet Volume 8.8; Monocytes # (A) 0.3 k/uL (0-1.0); Monocytes % (A) 5 %; Neutrophils # (A) 4.1 k/uL (1.3-7.7); Neutrophils % (A) 80 %; Platelet Count 142 k/uL (150-450); RBC 4.25 m/uL (3.80-5.40); RDW 13.7 % (11.5-15.5); WBC 5.1 k/uL (3.8-10.6)
[2024-03-09 15:12] LABS: ALT 12 U/L (4-34); AST 21 U/L (14-36); African American GFR (CKD) >90 (>60 ml/min/1.73 sqM); Alkaline Phosphatase 72 U/L (38-126); Amylase 37 U/L (30-110); Anion Gap 7 mmol/L; Blood Urea Nitrogen 14 mg/dL (7-17); Calcium 9.4 mg/dL (8.4-10.2); Carbon Dioxide 23 mmol/L (22-30); Chloride 111 mmol/L (98-107); Glucose 112 mg/dL (74-99); Lipase 25 U/L (23-300); Non-African American GFR(CKD) >90 (>60 ml/min/1.73 sqM); Potassium 3.9 mmol/L (3.5-5.1); Sodium 141 mmol/L (137-145); Total Bilirubin 2.1 mg/dL (0.2-1.3)
[2024-03-09 15:46] VITALS: BP 138/78; PULSE 97; TEMP 97.9
== END 2024-03-09 15:47 | disposition home or self-care (01) ==
LOC: EC 13:08
DX: R10.31 Right lower quadrant pain (principal)
CPT/HCPCS: 36415; 74176; 80053; 82150; 82272; 83690; 85025; 96360; 99285

== ENCOUNTER → 2024-12-09 | Outpatient (CLI) | payer MEDICARE ==
--- NOTE | 2024-12-09 09:28 | MR ---
EXAMINATION TYPE: MR brain wo/w con DATE OF EXAM: 12/09/2024 8:39 AM COMPARISON: None. CLINICAL INDICATION: Female, 74 years old with history of G30.9 dementia; PHH, Forgetfulness, dementi a. TECHNIQUE: Multi planar, multi sequence imaging was performed through the brain including: T1, T2, In version recovery, susceptibility weighted imaging and gradient echo imaging and Diffusion weighted im aging. The patient was then given intravenous contrast and multi planar, T1 fat-saturation images wer e obtained. IV Contrast: 6.5 mL Gadobutrol FINDINGS: Moderate cerebral atrophy with proportional dilation of ventricular system. Diffusion-weighted imagi ng shows no evidence of restricted diffusion to suggest acute/subacute infarct. Intracranial arterial flow voids are maintained. Midline structures show no abnormality. Scattered foci of high T2 signal intensity are seen within the periventricular white matter. The susceptibility weighted images do not reveal any evidence for micro-hemorrhage. After administration of gadolinium, no abnormal enhancemen t is seen. Bilateral choroid plexus xanthogranulomas. Dural based lesion along the right anterior skull measuring 10 x 4 mm. This is demonstrating mild enh ancement on postcontrast imaging Possibly a meningioma The bone marrow signal is within normal limits. Paranasal sinuses and mastoid air cells: No significant paranasal sinus disease. High T2 signal withi n the mastoid air cells bilaterally. Visualized orbits: Orbital contents are intact. IMPRESSION: 1. Moderate cerebral atrophy No evidence of intracranial mass, acute/subacute infarct, or abnormal en hancement. 2. Nonspecific white matter changes, likely related to small vessel ischemic disease. 3. Bilateral mastoid air cell effusions. 4. Dural based lesion along the right anterior skull measuring 10 x 4 mm. Possibly a meningioma consi rené short-term follow-up in 6 months to ensure stability. [facility], , 12/09/2024 9:26 AM
== END | disposition home or self-care (01) ==
LOC: RADMRIMAIN 07:11
PROVIDERS: ATTEND Psychiatry & Neurology Neurology
DX: G30.9 Alzheimer's disease, unspecified (principal); G93.89 Other specified disorders of brain; G31.9 Degenerative disease of nervous system, unspecified; R90.82 White matter disease, unspecified
CPT/HCPCS: 70553; A9585